=== PATIENT | female | born 1965 ===

== ENCOUNTER 2016-12-10 16:06 | Emergency (ER) | payer MEDICAID, OTHER ==
[2016-12-10 16:06] VITALS: BMI 29.3
[2016-12-10 16:36] VITALS: BP 130/97; PULSE 71; RESP 16; TEMP 98.4; O2SAT 99
--- NOTE | 2016-12-10 16:42 | ED PDOC ---
Arrival/HPI - General Chief Complaint: Upper Extremity Problem/Injury Time Seen by Provider: 12/10/16 16:29 Historian: Patient - History of Present Illness Narrative History of Present Illness (Text): 12/10/16 16:38 51yr old female presents today with 1 week history of right hand and right shoulder pain. 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 pt states she has been taking advil for pain without relief. denies numbness, weakness, tingling in the extremity. no fever/chills. no cp or sob. no medications taken for pain today. last dose of motrin was last night. Time/Duration: 1 week Symptom Onset: Gradual Symptom Course: Worsening Quality: Aching Severity Level: 8 Past Medical History - Provider Review Nursing Documentation Reviewed: Yes - Travel History Have you recently traveled outside [place] w/in the past 3 mons?: No - Infectious Disease Hx of Infectious Diseases: None - Tetanus Immunization Tetanus Immunization: Unknown - Cardiac Hx Hypertension: Yes - Pulmonary Hx Respiratory Disorders: No - Neurological Hx Neurological Disorder: Yes Hx Dizziness: Yes - HEENT Hx HEENT Disorder: No - Renal Hx Renal Disorder: No - Endocrine/Metabolic Hx Endocrine Disorders: No - Hematological/Oncological Hx Blood Disorders: No - Integumentary Hx Dermatological Disorder: No - Musculoskeletal/Rheumatological Hx Musculoskeletal Disorders: Yes Hx Falls: Yes - Gastrointestinal Hx Gastrointestinal Disorders: Yes Hx Gastroesophageal Reflux: Yes (gastritis) Other/Comment: ulcer, hemmorroids - Genitourinary/Gynecological Hx Genitourinary Disorders: Yes Hx Incontinence: Yes (overactive bladder) - Psychiatric Hx Psychophysiologic Disorder: No Hx Substance Use: No - Past Surgical History Past Surgical History: No Previous - Surgical History Hx Hysterectomy: Yes - Anesthesia Hx Anesthesia: Yes Hx Anesthesia Reactions: No Hx Malignant Hyperthermia: No - Suicidal Assessment Feels Threatened In Home Enviroment: No Family/Social History - Physician Review Nursing Documentation Reviewed: Yes Family/Social History: Unknown Family HX Smoking Status: Never Smoked Hx Alcohol Use: Yes (Occasional beer) Hx Substance Use: No Hx Substance Use Treatment: No Allergies/Home Meds Allergies/Adverse Reactions: Allergies No Known Allergies Allergy (Verified 12/10/16 16:29) Home Medications: Home Meds Medication Instructions Recorded Confirmed Lisinopril [Zestril] 20 mg PO DAILY 05/05/16 12/10/16 Aspirin [Adult Low Dose Aspirin EC] 81 mg PO DAILY 10/19/16 12/10/16 Famotidine [Pepcid] 20 mg PO DAILY 10/19/16 12/10/16 Meclizine HCl 12.5 mg PO TID 10/19/16 12/10/16 amLODIPine [Norvasc] 10 mg PO DAILY 10/19/16 12/10/16 hydroCHLOROthiazide [Hydrodiuril] 25 mg PO DAILY 10/19/16 12/10/16 Review of Systems - Review of Systems Constitutional: absent: Fatigue, Fevers Respiratory: absent: SOB, Cough Cardiovascular: absent: Chest Pain, Palpitations Gastrointestinal: absent: Abdominal Pain, Nausea, Vomiting Musculoskeletal: Arthralgias. absent: Back Pain, Neck Pain Skin: absent: Rash, Pruritis Neurological: absent: Headache, Dizziness Physical Exam Vital Signs Temp Pulse Resp BP Pulse Ox 12/10/16 16:10 98.4 F 71 16 130/97 H 99 Temperature: Afebrile Blood Pressure: Normal Pulse: Regular Respiratory Rate: Normal Appearance: Positive for: Well-Appearing, Non-Toxic, Comfortable Pain Distress: None Mental Status: Positive for: Alert and Oriented X 3 - Systems Exam Head: Present: Atraumatic Mouth: Present: Moist Mucous Membranes Respiratory/Chest: Present: Clear to Auscultation, Good Air Exchange. No: Respiratory Distress, Accessory Muscle Use Cardiovascular: Present: Regular Rate and Rhythm, Normal S1, S2. No: Murmurs Back: Present: Normal Inspection Upper Extremity: Present: Normal ROM, NORMAL PULSES, Tenderness (right hand; + ttp over palmar aspect of hand over approx 3rd metacarpal; no edema, no erythema ; no ecchymosis; no wrist tenderness, full rom of wrist. sensation and distal pulses intact. cap refill <2. right shoulder; + ttp over anterior aspect of shoulder; no edema, no erythema; full rom of shoulder with pain; + ttp over right side of trapezius. ), Neurovascularly Intact, Capillary Refill < 2s. No: Swelling, Erythema, Deformity Neurological: Present: GCS=15, Speech Normal Skin: Present: Warm, Dry, Normal Color. No: Rashes Psychiatric: Present: Alert, Oriented x 3 Medical Decision Making ED Course and Treatment: 12/10/16 17:16 Patient nontoxic well-appearing in no distress with stable vital signs X-rays of the right shoulder; no fx xrays of the right hand pain; no fx toradol flexeril Reassessment: Patient feeling better after medications i advised the patient that although the xrays show no fracture; there is still a possibility for ligamentous or tendon injury the patient must see the orthopedist for further evaluation. I discussed all results with patient advised to followup with the orthopedist for the next 2 days. Return if symptoms worsen persist or new symptoms develop David wrap applied Impression: hand pain, shoulder pain Motrin every 6 hours as needed for pain Tramadol 1 tablet every 6 hours as needed for moderate to severe pain. may cause drowsiness. Rest, ice, compression, elevation Followup with the orthopedist within the next 2 days Followup with primary care physician within the next 2 days Return if any other concerning symptoms develop 12/10/16 18:12 - RAD Interpretation Radiology Orders: 12/10/16 16:30 HAND RIGHT 3 VIEWS [RAD] Stat SHOULDER RIGHT [RAD] Stat - Medication Orders Current Medication Orders: Discontinued Medications Cyclobenzaprine HCl (Flexeril) 10 mg PO STAT STA Stop: 12/10/16 16:31 Last Admin: 12/10/16 17:05 Dose: 10 mg Ketorolac Tromethamine (Toradol) 60 mg IM STAT STA Stop: 12/10/16 16:31 Last Admin: 12/10/16 17:05 Dose: 60 mg Disposition/Present on Arrival - Present on Arrival Any Indicators Present on Arrival: No History of DVT/PE: No History of Uncontrolled Diabetes: No Urinary Catheter: No History of Decub. Ulcer: No History Surgical Site Infection Following: None - Disposition Have Diagnosis and Disposition been Completed?: Yes Diagnosis: Hand pain, Shoulder pain Disposition: HOME/ ROUTINE Disposition Time: 17:50 Patient Plan: Discharge Patient Problems: Current Active Problems Problem Status Onset Hand pain Acute Shoulder pain Acute Condition: GOOD Discharge Instructions (ExitCare): Arthralgia (ED) Additional Instructions: Motrin every 6 hours as needed for pain Tramadol 1 tablet every 6 hours as needed for moderate to severe pain. may cause drowsiness. Rest, ice, compression, elevation Followup with the orthopedist within the next 2 days Followup with primary care physician within the next 2 days Return if any other concerning symptoms develop Prescriptions: Ibuprofen [Motrin] 600 mg PO Q6H PRN #20 tab PRN Reason: pain/fever reduction traMADol [Ultram] 50 mg PO Q6H PRN #6 tab PRN Reason: moderate to severe pain Referrals: Libra Bryan MD [Primary Care Provider] - Follow up with primary Norma Cobian MD [Staff Provider] - Follow up with primary [facility] [Outside] - Follow up with primary Forms: WORK NOTE
--- NOTE | 2016-12-11 08:40 | RAD ---
PROCEDURE: Right Hand Radiographs. HISTORY: hand pain x 1 week COMPARISON: None. FINDINGS: BONES: Normal. No fracture. JOINTS: Normal. No osteoarthritic changes. SOFT TISSUES: Normal. OTHER FINDINGS: None. IMPRESSION: Normal right hand radiographs.
--- NOTE | 2016-12-11 08:41 | RAD ---
PROCEDURE: Radiographs of the Right Shoulder HISTORY: shoulder pain COMPARISON: No prior. FINDINGS: BONES: Normal. No fracture. JOINTS: Normal. Glenohumeral and acromioclavicular joints preserved. No osteoarthritis. SOFT TISSUES: Normal. OTHER FINDINGS: None. IMPRESSION: Normal radiographs of the right shoulder.
== END 2016-12-10 18:03 | disposition home or self-care (01) ==
LOC: ED 16:06
DX: M25.511 Pain in right shoulder (principal); M79.641 Pain in right hand; I10 Essential (primary) hypertension
CPT/HCPCS: 73030; 73130; 96372; 99283; J1885

== ENCOUNTER 2016-12-29 12:43 | Emergency (ER) | payer MEDICAID, OTHER ==
[2016-12-29 13:04] VITALS: BMI 29.0
[2016-12-29 13:08] VITALS: RESP 19
[2016-12-29] MEDS ORDERED: Sodium Chloride 0.9% 1,000 ML IV STA (13:31)
[2016-12-29] MEDS ORDERED: Alum-Mag Hydrox-Simethicone Susp (30 mL) PO STA (13:32)
--- NOTE | 2016-12-29 13:35 | ED PDOC ---
Arrival/HPI - General Chief Complaint: GI Problem Time Seen by Provider: 12/29/16 12:52 Historian: Patient - History of Present Illness Narrative History of Present Illness (Text): 12/29/16 13:31 A 51 year old female, whose past medical history includes hypertension, gastritis, stomach ulcer, hiatal hernia and vertigo, presents to the emergency department complaining of abdominal pain since this morning at 06:00. Hisotry obtained through scribe who translated for patient. Patient denies any relieving or exacerbating factors. Contrary to triage patient denies any urinary symptoms. Patient denies any fever, chills, nausea, vomiting, diarrhea, constipation, chest pain, shortness of breath or any other complaints. PMD: Dr. Bryan Time/Duration: Other (This morning at 06:00) Symptom Course: Unchanged Quality: Other Context: Home Past Medical History - Provider Review Nursing Documentation Reviewed: Yes - Infectious Disease Hx of Infectious Diseases: None - Tetanus Immunization Tetanus Immunization: Unknown - Reproductive Menopause: Yes - Cardiac Hx Cardiac Disorders: Yes Hx Hypertension: Yes - Pulmonary Hx Respiratory Disorders: No - Neurological Hx Neurological Disorder: Yes Hx Dizziness: Yes - HEENT Hx HEENT Disorder: Yes (vision probems) - Renal Hx Renal Disorder: No - Endocrine/Metabolic Hx Endocrine Disorders: No - Hematological/Oncological Hx Blood Disorders: No - Integumentary Hx Dermatological Disorder: No - Musculoskeletal/Rheumatological Hx Musculoskeletal Disorders: Yes Hx Falls: Yes - Gastrointestinal Hx Gastrointestinal Disorders: Yes Hx Gastritis: Yes Hx Gastroesophageal Reflux: Yes (gastritis) Other/Comment: ulcer, hemmorroids - Genitourinary/Gynecological Hx Genitourinary Disorders: Yes Hx Incontinence: Yes (overactive bladder) - Psychiatric Hx Psychophysiologic Disorder: No Hx Substance Use: No - Past Surgical History Past Surgical History: No Previous - Surgical History Hx Hysterectomy: Yes - Anesthesia Hx Anesthesia: Yes Hx Anesthesia Reactions: No Hx Malignant Hyperthermia: No - Suicidal Assessment Feels Threatened In Home Enviroment: No Family/Social History - Physician Review Nursing Documentation Reviewed: Yes Family/Social History: No Known Family HX Smoking Status: Never Smoked Hx Alcohol Use: Yes (Occasional beer) Hx Substance Use: No Hx Substance Use Treatment: No Allergies/Home Meds Allergies/Adverse Reactions: Allergies No Known Allergies Allergy (Verified 12/29/16 13:04) Home Medications: Home Meds Medication Instructions Recorded Confirmed Lisinopril [Zestril] 20 mg PO DAILY 05/05/16 12/29/16 Aspirin [Adult Low Dose Aspirin EC] 81 mg PO DAILY 10/19/16 12/29/16 Famotidine [Pepcid] 20 mg PO DAILY 10/19/16 12/29/16 Meclizine HCl 12.5 mg PO TID 10/19/16 12/29/16 amLODIPine [Norvasc] 10 mg PO DAILY 10/19/16 12/29/16 hydroCHLOROthiazide [Hydrodiuril] 25 mg PO DAILY 10/19/16 12/29/16 Review of Systems - Physician Review All systems were reviewed & negative as marked: Yes - Review of Systems Constitutional: absent: Fevers, Night Sweats Respiratory: absent: SOB Cardiovascular: absent: Chest Pain Gastrointestinal: Abdominal Pain. absent: Constipation, Diarrhea, Nausea, Vomiting Genitourinary Female: absent: Dysuria, Frequency, Hematuria, Urine Output Changes Physical Exam - Physical Exam Narrative Physical Exam (Text): Constitutional: No acute distress. Head: Normocephalic. Atraumatic. Eyes: PERRL. ENT: Moist mucous membranes. Neck: Supple. Cardiovascular: Regular rate. Chest: No tenderness. Respiratory: Clear to auscultation bilaterally. GI: Soft. Nondistended. Epigastric tenderness to palpation. No rebound. Back: No CVA tenderness. Musculoskeletal: No tenderness or swelling of extremities. Skin: No rash. Neurologic: Alert, no focal deficit. Vital Signs Reviewed: Yes Vital Signs Temp Pulse Resp BP Pulse Ox 12/29/16 15:04 98.7 F 75 19 127/82 100 12/29/16 13:07 98.0 F 77 19 123/80 98 Temperature: Afebrile Blood Pressure: Normal Pulse: Regular Respiratory Rate: Normal Appearance: Positive for: Well-Appearing, Non-Toxic, Comfortable Pain Distress: None Mental Status: Positive for: Alert and Oriented X 3 Medical Decision Making ED Course and Treatment: 12/29/16 13:31 Impression: A 51 year old female with abdominal pain that she states is typical of her gastritis. Patient denies any nausea, vomiting, diarrhea or urinary symptoms. Epigastric tenderness on exam. Plan: -- Labs -- Urine culture and Urinalysis -- Maalox, Pepcid, Zofran, Protonix and IV fluids -- Reassess and disposition Progress Notes: 12/29/16 15:08 Patient states she feels completely better. Abdomen nontender. Will discharge home, f/u PMD, return to ER for worsening pain, fever, vomiting, dyspnea. - Lab Interpretations Lab Results: 12/29/16 14:05 12/29/16 14:05 Lab Results 12/29/16 14:05: Sodium 138, Potassium 3.6, Chloride 98, Carbon Dioxide 31, Anion Gap 13, BUN 18, Creatinine 0.8, Est GFR ( Amer) > 60, Est GFR (Non- Af Amer) > 60, Random Glucose 101, Calcium 9.0, Total Bilirubin 0.5, AST 30, ALT 40, Alkaline Phosphatase 71, Total Protein 7.2, Albumin 4.1, Globulin 3.2, Albumin/Globulin Ratio 1.3, Lipase 246 12/29/16 14:05: WBC 11.3 H D, RBC 4.24, Hgb 12.3, Hct 37.3, MCV 88.0, MCH 29.0, MCHC 33.0, RDW 13.3, Plt Count 285, MPV 9.0, Gran % 71.2 H, Lymph % (Auto) 22.3 , Dixon % (Auto) 4.9, Eos % (Auto) 1.4 L, Baso % (Auto) 0.2, Gran # 8.05 H, Lymph # 2.5, Dixon # 0.6, Eos # 0.2, Baso # 0.02 12/29/16 13:36: Urine Color Yellow, Urine Appearance Clear, Urine pH 5.5, Ur Specific [place] 1.025, Urine Protein Negative, Urine Glucose (UA) Negative, Urine Ketones Negative, Urine Blood Negative, Urine Nitrate Negative, Urine Bilirubin Negative, Urine Urobilinogen 0.2, Ur Leukocyte Esterase Negative, Urine HCG, Qual Negative I have reviewed the lab results: Yes - Medication Orders Current Medication Orders: Discontinued Medications Al Hydrox/Mg Hydrox/Simethicone (Maalox Plus 30 Ml) 30 ml PO STAT STA Stop: 12/29/16 13:33 Last Admin: 12/29/16 14:24 Dose: 30 ml Famotidine (Pepcid) 20 mg IVP STAT STA Stop: 12/29/16 13:33 Last Admin: 12/29/16 14:23 Dose: 20 mg Sodium Chloride (Sodium Chloride 0.9%) 1,000 mls @ 999 mls/hr IV .Q1H1M STA Stop: 12/29/16 14:31 Last Admin: 12/29/16 13:59 Dose: 999 mls/hr Ondansetron HCl (Zofran Inj) 8 mg IVP STAT STA Stop: 12/29/16 13:32 Last Admin: 12/29/16 14:16 Dose: 8 mg Pantoprazole Sodium (Protonix Inj) 40 mg IVP STAT STA Stop: 12/29/16 13:33 Last Admin: 12/29/16 14:24 Dose: 40 mg - Scribe Statement The provider has reviewed the documentation as recorded by the Riki Grajeda Provider Scribe Attestation: All medical record entries made by the Scribe were at my direction and personally dictated by me. I have reviewed the chart and agree that the record accurately reflects my personal performance of the history, physical exam, medical decision making, and the department course for this patient. I have also personally directed, reviewed, and agree with the discharge instructions and disposition. Disposition/Present on Arrival - Present on Arrival Any Indicators Present on Arrival: No History of DVT/PE: No History of Uncontrolled Diabetes: No Urinary Catheter: No History of Decub. Ulcer: No History Surgical Site Infection Following: None - Disposition Have Diagnosis and Disposition been Completed?: Yes Diagnosis: Abdominal pain Disposition: HOME/ ROUTINE Disposition Time: 14:46 Patient Plan: Discharge Condition: STABLE Discharge Instructions (ExitCare): Abdominal Pain (ED) Prescriptions: Famotidine/Ca Carb/Mag Hydrox [Pepcid Complete Tablet Chew] 1 each PO BID #28 tab.chew Referrals: Libra Bryan MD [Primary Care Provider] - Follow up with primary
[2016-12-29 13:44] LABS: PH,URINE 5.5 (4.7-8.0); URINE BILIRUBIN NEGATIVE (NEGATIVE); URINE BLOOD NEGATIVE (NEGATIVE); URINE GLUCOSE (UA) NEGATIVE (NEGATIVE); URINE KETONE NEGATIVE (NEGATIVE); URINE LEUKOCYTE ESTERASE NEGATIVE Leu/uL (NEGATIVE); URINE PROTEIN NEGATIVE mg/dL (<30 mg/dL); URINE UROBILINOGEN 0.2 E.U./dL (<1 E.U./dL)
[2016-12-29 13:45] LABS: URINE APPEARANCE CLEAR (CLEAR); URINE COLOR YELLOW (YELLOW)
[2016-12-29 14:07] LABS: ADD MANUAL DIFF? NO
[2016-12-29 14:20] LABS: BASO # 0.02 K/mm3 (0.0-2.0); BASO % 0.2 % (0.0-3.0); EOS # 0.2 (0.0-0.7); EOS % 1.4 % (1.5-5.0); GRAN # 8.05 (1.4-6.5); GRAN % 71.2 % (50.0-68.0); HEMATOCRIT 37.3 % (36.0-48.0); LYMPH # 2.5 (1.2-3.4); LYMPH % 22.3 % (22.0-35.0); MONO # 0.6 (0.1-0.6); MONO % 4.9 % (1.0-6.0); PLATELET COUNT 285 10^3/uL (120.0-450.0); RED CELL DISTRIBUTION WIDTH 13.3 % (11.5-14.5); WHITE BLOOD COUNT 11.3 10^3/ul (4.5-11.0)
[2016-12-29 14:26] LABS: ALB/GLOB RATIO 1.3 (1.1-1.8); ALKALINE PHOSPHATASE 71 U/L (38-133); ALT/SGPT 40 U/L (7-56); AST/SGOT 30 U/L (15-39); BILIRUBIN,TOTAL 0.5 mg/dL (0.2-1.3); BLOOD UREA NITROGEN 18 mg/dL (7-21); CARBON DIOXIDE 31 mmol/L (21-33); CHLORIDE 98 mmol/L (95-110); GFR AFRICAN-AMERICAN > 60; GLUCOSE,RANDOM 101 mg/dL (70-110); LIPASE 246 U/L (23-300); POTASSIUM 3.6 mmol/L (3.6-5.0); SODIUM 138 mmol/L (132-148); TOTAL PROTEIN 7.2 g/dL (5.8-8.3)
[2016-12-29 15:05] VITALS: BP 127/82; PULSE 75; TEMP 98.7; O2SAT 100
== END 2016-12-29 15:08 | disposition home or self-care (01) ==
LOC: ED 12:43
DX: R10.9 Unspecified abdominal pain (principal); I10 Essential (primary) hypertension; K21.9 Gastro-esophageal reflux disease without esophagitis
CPT/HCPCS: 80053; 81003; 83690; 84703; 85025; 87086; 87181; 96374; 96375; 99284; C9113; J2405; J7040

== ENCOUNTER 2017-03-17 16:12 | Emergency (ER) | payer MEDICAID ==
[2017-03-17 16:15] VITALS: BMI 29.0
[2017-03-17 16:21] VITALS: RESP 16; TEMP 99
[2017-03-17] MEDS ORDERED: Sodium Chloride 0.9% 1,000 ML IV STA (17:13)
[2017-03-17 17:30] LABS: BASO # 0.05 K/mm3 (0.0-2.0); BASO % 0.5 % (0.0-3.0); EOS # 0.1 (0.0-0.7); EOS % 1.4 % (1.5-5.0); GRAN # 6.09 (1.4-6.5); HEMOGLOBIN 12.9 gm/dL (12.0-16.0); LYMPH # 3.4 (1.2-3.4); LYMPH % 32.9 % (22.0-35.0); MEAN CELL VOLUME 87.9 fL (80.0-105.0); MEAN CORPUSCULAR HEMOGLOBIN 28.8 pg (25.0-35.0); MEAN CORPUSCULAR HGB CONC 32.7 g/dl (31.0-37.0); MEAN PLATELET VOLUME 9.2 fl (7.0-11.0); MONO # 0.6 (0.1-0.6); MONO % 6.2 % (1.0-6.0); PLATELET COUNT 285 10^3/uL (120.0-450.0); RBC 4.48 10^6/uL (3.5-6.1); RED CELL DISTRIBUTION WIDTH 13.4 % (11.5-14.5); WHITE BLOOD COUNT 10.3 10^3/ul (4.5-11.0)
[2017-03-17 17:38] LABS: URINE BILIRUBIN NEGATIVE (NEGATIVE); URINE BLOOD NEGATIVE (NEGATIVE); URINE GLUCOSE (UA) NEGATIVE (NEGATIVE); URINE LEUKOCYTE ESTERASE NEGATIVE Leu/uL (NEGATIVE); URINE NITRATE NEGATIVE (NEGATIVE); URINE PROTEIN NEGATIVE mg/dL (<30 mg/dL); URINE UROBILINOGEN 0.2 E.U./dL (<1 E.U./dL)
[2017-03-17 17:39] LABS: URINE APPEARANCE CLEAR (CLEAR); URINE COLOR YELLOW (YELLOW)
--- NOTE | 2017-03-17 17:39 | ED PDOC ---
Arrival/HPI - General Chief Complaint: Dizziness/Lightheaded Time Seen by Provider: 03/17/17 17:12 Historian: Patient - History of Present Illness Narrative History of Present Illness (Text): 03/17/17 17:36 Patient with past medical history of hypertension, reports 2 day h/o intermittent dizziness with vertigo as stated with nausea. Patient was well prior to the start of symptoms. Reports (+) worsening of symptoms with movement of head. She also reports having similar symptoms in the past, was taking meclizine, however states that she has not had a Rx for meclizine "for a while. " She does add that her current symptoms are more mild than her previous episodes in the past, when she would almost have syncopal episodes. Otherwise: ( -) lightheadedness, (-) trauma, (-) headache, (-) tinnitus, (-) hearing loss, (- ) chest pain, (-) dyspnea, (-) fever, (-) vomiting, (-) URI, (-) recent illness , (-) diarrhea, (-) syncope, (-) GI bleeding. PMD Irvin Past Medical History - Provider Review Nursing Documentation Reviewed: Yes - Infectious Disease Hx of Infectious Diseases: None - Tetanus Immunization Tetanus Immunization: Unknown - Cardiac Hx Cardiac Disorders: Yes Hx Hypertension: Yes - Pulmonary Hx Respiratory Disorders: No - Neurological Hx Neurological Disorder: Yes Hx Dizziness: Yes - HEENT Hx HEENT Disorder: Yes (vision probems) - Renal Hx Renal Disorder: No - Endocrine/Metabolic Hx Endocrine Disorders: No - Hematological/Oncological Hx Blood Disorders: No - Integumentary Hx Dermatological Disorder: No - Musculoskeletal/Rheumatological Hx Musculoskeletal Disorders: Yes Hx Falls: Yes - Gastrointestinal Hx Gastrointestinal Disorders: Yes Hx Gastritis: Yes Hx Gastroesophageal Reflux: Yes (gastritis) Hx Hemorrhoids: Yes Other/Comment: ulcer, hemmorroids - Genitourinary/Gynecological Hx Genitourinary Disorders: Yes Hx Incontinence: Yes (overactive bladder) - Psychiatric Hx Psychophysiologic Disorder: No Hx Substance Use: No - Past Surgical History Past Surgical History: No Previous - Surgical History Hx Hysterectomy: Yes - Anesthesia Hx Anesthesia: Yes Hx Anesthesia Reactions: No Hx Malignant Hyperthermia: No - Suicidal Assessment Feels Threatened In Home Enviroment: No Family/Social History - Physician Review Nursing Documentation Reviewed: Yes Family/Social History: No Known Family HX Smoking Status: Never Smoked Hx Alcohol Use: Yes (Occasional beer) Hx Substance Use: No Hx Substance Use Treatment: No Allergies/Home Meds Allergies/Adverse Reactions: Allergies No Known Allergies Allergy (Verified 12/29/16 13:04) Home Medications: Home Meds Medication Instructions Recorded Confirmed Lisinopril [Zestril] 20 mg PO DAILY 05/05/16 03/17/17 Aspirin [Adult Low Dose Aspirin EC] 81 mg PO DAILY 10/19/16 03/17/17 Famotidine [Pepcid] 20 mg PO DAILY 10/19/16 03/17/17 amLODIPine [Norvasc] 10 mg PO DAILY 10/19/16 03/17/17 hydroCHLOROthiazide [Hydrodiuril] 25 mg PO DAILY 10/19/16 03/17/17 Review of Systems - Review of Systems Constitutional: Normal. absent: Fatigue, Weight Change, Fevers ENT: Normal. absent: Hearing Changes, Tinnitus, Sore Throat, Epistaxis, Sinus Congestion Respiratory: Normal. absent: SOB, Cough, Sputum Cardiovascular: Normal. absent: Chest Pain, Palpitations, Edema Gastrointestinal: Normal, Nausea. absent: Abdominal Pain, Stool Changes, Appetite Changes Musculoskeletal: Normal. absent: Arthralgias, Back Pain, Neck Pain Skin: Normal. absent: Rash, Pruritis, Skin Lesions Neurological: Normal, Dizziness. absent: Headache, Focal Weakness Physical Exam - Physical Exam Narrative Physical Exam (Text): 03/17/17 17:39 GENERAL APPEARANCE: Patient is awake, alert, oriented x 3, in mild distress. SKIN: Warm, dry; (-) cyanosis. HEAD: (-) scalp swelling or tenderness. EYES: (-) conjunctival pallor. ENMT: TMs normal. Mucous membranes moist. NECK: (-) tenderness, (-) stiffness, (-) lymphadenopathy. Carotids: (-) bruit. CHEST AND RESPIRATORY: (-) rales, (-) rhonchi, (-) wheezes; breath sounds equal bilaterally. HEART AND CARDIOVASCULAR: (-) irregularity; (-) murmur, (-) gallop. ABDOMEN AND GI: Soft; (-) distention, (-) tenderness, (-) rebound, (-) guarding , (-) palpable masses, (-) flank tenderness. EXTREMITIES: (-) deformity; (-) edema. Distal pulses: present. NEURO AND PSYCH: Mental status as above. medical sales specialist: (+) faint horizontal nystagmus; Pupils equal & reactive, EOMI, (-) facial asymmetry; (-) dysarthria; tongue and uvula midline. Strength and DTRs symmetric. Gait: unable to test, as the pt is too dizzy. Vital Signs Temp Pulse Resp BP Pulse Ox 03/17/17 18:15 59 L 16 126/78 98 03/17/17 17:25 60 16 115/77 96 03/17/17 16:50 65 16 119/76 97 03/17/17 16:20 99 F 72 16 136/81 96 Medical Decision Making ED Course and Treatment: 03/17/17 17:40 51 yo F with past medical history of hypertension, reports 2 day h/o intermittent dizziness with vertigo associated with nausea. Plan: -- Labs -- IV fluids -- Urinalysis -- EKG -- CXR -- Meclizine PO / Zofran IV -- Reassess and disposition 03/17/17 17:43 EKG: NSR at 64 bpm, (-) acute ST changes, as read by KARON. CXR : NAD, as read by KARON 03/17/17 18:30 Labs reviewed and are within normal limits. Diagnostic results discussed the patient in great detail. Patient informed of likely diagnosis of vertigo. On reevaluation, patient states that she feels much improved, denies any dizziness , headache, chest pain, shortness of breath or nausea at this time. VS: P 59 BP 126/78 R 16 O298% RA. On exam, patient is laying comfortably in bed in no acute distress. She remains awake, alert, oriented 3, lungs clear to auscultation, cardiac regular rate and rhythm, repeat neuro exam shows no acute focal findings. Patient able to stand up on her own without any assistance is ambulating with a normal gait in the emergency room. Patient advised to follow up with primary care physician in 1-2 days without fail. Advised to take medication as prescribed. Return to the emergency room at any time for any new or worsening symptoms. Patient states she fully agrees with and understands discharge instructions. States that she agrees with the plan and disposition. Verbalized and repeated discharge instructions and plan. I have given the patient opportunity to ask any additional questions. - Lab Interpretations Lab Results: 03/17/17 16:45 03/17/17 16:45 Lab Results 03/17/17 16:45: Urine Color Yellow, Urine Appearance Clear, Urine pH 6.0, Ur Specific [place] >= 1.030, Urine Protein Negative, Urine Glucose (UA) Negative, Urine Ketones Negative, Urine Blood Negative, Urine Nitrate Negative, Urine Bilirubin Negative, Urine Urobilinogen 0.2, Ur Leukocyte Esterase Negative 03/17/17 16:45: Sodium 140, Potassium 4.1, Chloride 99, Carbon Dioxide 31, Anion Gap 14, BUN 15, Creatinine 1.0, Est GFR ( Amer) > 60, Est GFR (Non- Af Amer) 58, Random Glucose 91, Calcium 9.8, Total Bilirubin 0.6, AST 32, ALT 35 , Alkaline Phosphatase 68, Lactate Dehydrogenase 533, Total Creatine Kinase 147 , Troponin I < 0.01, Total Protein 7.5, Albumin 4.4, Globulin 3.1, Albumin/ Globulin Ratio 1.4 03/17/17 16:45: WBC 10.3, RBC 4.48, Hgb 12.9, Hct 39.4, MCV 87.9, MCH 28.8, MCHC 32.7, RDW 13.4, Plt Count 285, MPV 9.2, Gran % 59.0, Lymph % (Auto) 32.9, [place] % (Auto) 6.2 H, Eos % (Auto) 1.4 L, Baso % (Auto) 0.5, Gran # 6.09, Lymph # 3.4, [place] # 0.6, Eos # 0.1, Baso # 0.05 - RAD Interpretation Radiology Orders: 03/17/17 17:13 CHEST PORTABLE [RAD] Stat - Medication Orders Current Medication Orders: Discontinued Medications Sodium Chloride (Sodium Chloride 0.9%) 1,000 mls @ 1,000 mls/hr IV .Q1H STA Stop: 03/17/17 18:12 Last Admin: 03/17/17 17:16 Dose: 1,000 mls/hr Meclizine HCl (Antivert) 25 mg PO STAT STA Stop: 03/17/17 17:15 Last Admin: 03/17/17 17:20 Dose: 25 mg Ondansetron HCl (Zofran Inj) 4 mg IVP STAT STA Stop: 03/17/17 17:14 Last Admin: 03/17/17 17:20 Dose: 4 mg - PA / ARCHITECTURAL EXAMINER / Resident Statement /DO has reviewed & agrees with the documentation as recorded. Disposition/Present on Arrival - Present on Arrival Any Indicators Present on Arrival: No History of DVT/PE: No History of Uncontrolled Diabetes: No Urinary Catheter: No History of Decub. Ulcer: No History Surgical Site Infection Following: None - Disposition Have Diagnosis and Disposition been Completed?: Yes Diagnosis: Vertigo Disposition: HOME/ ROUTINE Disposition Time: 18:30 Patient Plan: Discharge Patient Problems: Current Active Problems Problem Status Onset Vertigo Acute Condition: STABLE Discharge Instructions (ExitCare): Vertigo (ED) Print Language: HUNGARIAN Additional Instructions: Thank you for letting us take care of you today. You were treated for vertigo. The emergency medical care you received today was directed at your acute symptoms. If you were prescribed any medication, please fill it and take as directed. It may take several days for your symptoms to resolve. Return to the Emergency Department if your symptoms worsen, do not improve, or if you have any other problems. Please contact your doctor in 2 days for re-evaluation and follow up. Bring any paperwork you were given at discharge with you along with any medications you are taking to your follow up visit. Our treatment cannot replace ongoing medical care by a primary care provider (PCP) outside of the emergency department. Thank you for allowing the [facility] team to be part of your care today. Prescriptions: Meclizine [Meclizine*] 25 mg PO Q6 PRN #20 tab PRN Reason: Dizziness Ondansetron ODT [Zofran ODT] 4 mg PO DAILY PRN #20 odt PRN Reason: Nausea/Vomiting Referrals: Libra Bryan MD [Primary Care Provider] - Follow up with primary Forms: Ghostery (Egyptian), WORK NOTE
[2017-03-17 17:40] LABS: ALB/GLOB RATIO 1.4 (1.1-1.8); ALBUMIN 4.4 g/dL (3.0-4.8); AST/SGOT 32 U/L (15-39); BLOOD UREA NITROGEN 15 mg/dL (7-21); CALCIUM 9.8 mg/dL (8.4-10.5); GFR AFRICAN-AMERICAN > 60; GFR NON-AFRICAN AMERICAN 58
[2017-03-17 18:05] LABS: ALT/SGPT 35 U/L (7-56)
[2017-03-17 18:17] VITALS: BP 126/78; PULSE 59; O2SAT 98
[2017-03-17 18:20] LABS: TROPONIN I < 0.01 ng/mL
--- NOTE | 2017-03-18 09:51 | RAD ---
HISTORY: dizziness COMPARISON: 08/02/2016 FINDINGS: LUNGS: No active pulmonary disease. PLEURA: No significant pleural effusion identified, no pneumothorax apparent. CARDIOVASCULAR: Normal. OSSEOUS STRUCTURES: No significant abnormalities. VISUALIZED UPPER ABDOMEN: Normal. OTHER FINDINGS: None. IMPRESSION: No active disease.
--- NOTE | 2017-03-19 09:35 | CARD ---
APPROVED REPORT EKG Measurement Heart [id number] WI [id number] <Conclusion> Normal sinus rhythm NSSTW changes
== END 2017-03-17 18:57 | disposition home or self-care (01) ==
LOC: ED 16:12
DX: R42 Dizziness and giddiness (principal)
CPT/HCPCS: 71010; 80053; 81003; 82550; 83615; 84484; 85025; 87086; 96361; 96374; 99285; J2405; J7040

== ENCOUNTER 2017-05-23 15:34 | Emergency (ER) | payer MEDICAID ==
[2017-05-23 15:34] VITALS: BMI 29.0
[2017-05-23 15:53] VITALS: TEMP 98.6
--- NOTE | 2017-05-23 16:28 | ED PDOC ---
Arrival/HPI - General Chief Complaint: Eye Problem Time Seen by Provider: 05/23/17 16:24 Historian: Patient - History of Present Illness Narrative History of Present Illness (Text): 05/23/17 16:25 51-year-old female whose past medical history includes hypertension, gastritis, stomach ulcer, hiatal hernia and vertigo, presents to the emergency department complaining of eye appears red 1 day. Patient did not realize about the redness of her eye until while her friends pointed out. Patient stated her left eye feels a little sore she was concerned that this redness was caused by hypertension. Patient thinks she needs eyeglasses however she has never seen an eye doctor before. Patient denies eye trauma, diplopia, headaches, epistaxis, hematuria, rectal bleeding, chest pain or shortness of breath, or urinary symptoms. Patient admits taking a baby aspirin daily Time/Duration: Other (See HPI) Context: Home Past Medical History - Provider Review Nursing Documentation Reviewed: Yes - Infectious Disease Hx of Infectious Diseases: None - Tetanus Immunization Tetanus Immunization: Unknown - Cardiac Hx Cardiac Disorders: Yes Hx Hypertension: Yes - Pulmonary Hx Respiratory Disorders: No - Neurological Hx Neurological Disorder: Yes Hx Dizziness: Yes - HEENT Hx HEENT Disorder: Yes (vision probems) - Renal Hx Renal Disorder: No - Endocrine/Metabolic Hx Endocrine Disorders: No - Hematological/Oncological Hx Blood Disorders: No - Integumentary Hx Dermatological Disorder: No - Musculoskeletal/Rheumatological Hx Musculoskeletal Disorders: Yes Hx Falls: Yes - Gastrointestinal Hx Gastrointestinal Disorders: Yes Hx Gastritis: Yes Hx Gastroesophageal Reflux: Yes (gastritis) Hx Hemorrhoids: Yes Other/Comment: ulcer, hemmorroids - Genitourinary/Gynecological Hx Genitourinary Disorders: Yes Hx Incontinence: Yes (overactive bladder) - Psychiatric Hx Psychophysiologic Disorder: No Hx Substance Use: No - Past Surgical History Past Surgical History: No Previous - Surgical History Hx Hysterectomy: Yes - Anesthesia Hx Anesthesia: Yes Hx Anesthesia Reactions: No Hx Malignant Hyperthermia: No - Suicidal Assessment Feels Threatened In Home Enviroment: No Family/Social History - Physician Review Nursing Documentation Reviewed: Yes Family/Social History: Other (Noncontributory) Smoking Status: Never Smoked Hx Alcohol Use: Yes (Occasional) Hx Substance Use: No Hx Substance Use Treatment: No Allergies/Home Meds Allergies/Adverse Reactions: Allergies No Known Allergies Allergy (Verified 05/23/17 15:50) Home Medications: Home Meds Medication Instructions Recorded Confirmed Unobtainable 05/23/17 05/23/17 Review of Systems - Review of Systems Constitutional: Normal. absent: Fatigue, Weight Change, Fevers Eyes: Other (Left eye redness). absent: Photophobia, Eye Pain ENT: Normal Respiratory: Normal. absent: SOB, Cough Cardiovascular: Normal. absent: Chest Pain, Palpitations Gastrointestinal: Normal. absent: Abdominal Pain, Nausea, Vomiting Genitourinary Female: Normal. absent: Dysuria, Frequency, Hematuria Musculoskeletal: Normal. absent: Back Pain, Neck Pain Skin: Normal Neurological: Normal Endocrine: Normal Hemo/Lymphatic: Normal Psychiatric: Normal Physical Exam Vital Signs Temp Pulse Resp BP Pulse Ox 05/23/17 15:50 98.6 F 80 16 125/85 97 Temperature: Afebrile Blood Pressure: Normal Pulse: Regular Respiratory Rate: Normal Appearance: Positive for: Well-Appearing, Non-Toxic, Comfortable Pain Distress: None Mental Status: Positive for: Alert and Oriented X 3 - Systems Exam Head: Present: Atraumatic, Normocephalic Pupils: Present: PERRL, Other (No hyphema) Extroacular Muscles: Present: EOMI. No: Entrapment Conjunctiva: Present: Other (Left eye subconjunctival hemorrhage, over the medial aspect of the sclera. No Cornea abrasion, dendritic lesions, no foreign bodies) Ears: Present: Normal, NORMAL TM, Normal Canal. No: Erythema, TM Bulging, Fluid , TM Perf Mouth: Present: Moist Mucous Membranes Pharnyx: Present: Normal. No: ERYTHEMA, EXUDATE, TONSILS ENLARGED Nose (External): Present: Atraumatic Nose (Internal): Present: Normal Inspection Neck: Present: Normal Range of Motion. No: Meningeal Signs, MIDLINE TENDERNESS , Paraspinal Tenderness Respiratory/Chest: Present: Clear to Auscultation, Good Air Exchange. No: Respiratory Distress, Accessory Muscle Use Cardiovascular: Present: Regular Rate and Rhythm, Normal S1, S2. No: Murmurs Abdomen: Present: Normal Bowel Sounds. No: Tenderness, Distention, Peritoneal Signs Back: Present: Normal Inspection. No: CVA Tenderness Upper Extremity: Present: Normal Inspection, Normal ROM, NORMAL PULSES, Neurovascularly Intact, Capillary Refill < 2s. No: Cyanosis, Edema Lower Extremity: Present: Normal Inspection, NORMAL PULSES, Normal ROM, Capillary Refill < 2 s. No: Edema Neurological: Present: GCS=15, CN II-XII Intact, Speech Normal, Motor Func Grossly Intact, Normal Sensory Function, Normal Cerebellar Funct, Gait Normal, Memory Normal Skin: Present: Warm, Dry, Normal Color. No: Rashes Psychiatric: Present: Alert, Oriented x 3, Normal Insight, Normal Concentration Medical Decision Making ED Course and Treatment: 05/23/17 16:35 I discuss case with Dr. Mercedes, who agrees with plan for discharge, and to f/u Enrollment Eligibility Representative in 1-2 days, or to return to emergency if symptoms worsen or persist. Re-evaluation Time: 16:36 Reassessment Condition: Re-examined, Improved Disposition/Present on Arrival - Present on Arrival Any Indicators Present on Arrival: No History of DVT/PE: No History of Uncontrolled Diabetes: No Urinary Catheter: No History of Decub. Ulcer: No History Surgical Site Infection Following: None - Disposition Have Diagnosis and Disposition been Completed?: Yes Diagnosis: Subconjunctival hemorrhage of left eye Disposition: HOME/ ROUTINE Disposition Time: 16:36 Condition: GOOD Additional Instructions: Call Eye doctor Alexa para seguimiento medico en 1-2 lester. [place] Tylenol para el dolor. Trate de no tocar llanes gonzález, porque lo puede irritar mas. regrese si el dolor de gonzález empeora Referrals: Libra Bryan MD [Primary Care Provider] - Follow up with primary Prateek Liu MD [Staff Provider] - Follow up with primary Forms: Arvin[employer] (Lithuanian)
[2017-05-23 17:07] VITALS: BP 126/80; PULSE 77; RESP 18; O2SAT 100
== END 2017-05-23 17:27 | disposition home or self-care (01) ==
LOC: ED 15:34
DX: H11.32 Conjunctival hemorrhage, left eye (principal); I10 Essential (primary) hypertension

== ENCOUNTER 2017-07-21 19:52 | Emergency (ER) | payer MEDICAID ==
[2017-07-21 20:09] VITALS: TEMP 98.7; BMI 27.2
[2017-07-21 20:38] LABS: BASO # 0.03 K/mm3 (0.0-2.0); BASO % 0.3 % (0.0-3.0); EOS # 0.2 (0.0-0.7); EOS % 1.8 % (1.5-5.0); GRAN # 5.19 (1.4-6.5); GRAN % 56.1 % (50.0-68.0); LYMPH # 3.4 (1.2-3.4); MEAN CELL VOLUME 89.3 fl (80.0-105.0); MEAN CORPUSCULAR HEMOGLOBIN 28.6 pg (25.0-35.0); MEAN PLATELET VOLUME 9.3 fl (7.0-11.0); MONO # 0.4 (0.1-0.6); MONO % 4.8 % (1.0-6.0); RED CELL DISTRIBUTION WIDTH 13.5 % (11.5-14.5); WHITE BLOOD COUNT 9.3 10^3/ul (4.5-11.0)
[2017-07-21 20:49] LABS: ALB/GLOB RATIO 1.4 (1.1-1.8); ALKALINE PHOSPHATASE 74 U/L (38-126); ALT/SGPT 37 U/L (7-56); AST/SGOT 34 U/L (14-36); BILIRUBIN,TOTAL 0.3 mg/dL (0.2-1.3); BLOOD UREA NITROGEN 17 mg/dL (7-21); CALCIUM 10.7 mg/dL (8.4-10.5); CARBON DIOXIDE 31 mmol/L (21-33); CHLORIDE 100 mmol/L (98-107); GFR AFRICAN-AMERICAN > 60; GLUCOSE,RANDOM 139 mg/dL (70-110); SODIUM 140 mmol/L (132-148); TOTAL PROTEIN 7.7 g/dL (5.8-8.3)
--- NOTE | 2017-07-21 21:15 | CT ---
EXAM: CT Head Without Intravenous Contrast CLINICAL HISTORY: 51 years old, female; Signs and symptoms; Dizziness; Additional info: Dizzy TECHNIQUE: Axial computed tomography images of the head/brain without intravenous contrast. All CT scans at this facility use one or more dose reduction techniques, viz.: automated exposure control; ma/kV adjustment per patient size (including targeted exams where dose is matched to indication; i.e. head); or iterative reconstruction technique. COMPARISON: CT - HEAD W/O CONTRAST 2016-08-02 22:42 FINDINGS: Brain: No intracranial hemorrhage. No mass. Minimal decreased attenuation within periventricular white matter. No definite edema. Ventricles: No hydrocephalus. Bones/joints: No acute fracture. Soft tissues: Unremarkable. Sinuses: No acute sinusitis. Mastoid air cells: No mastoid effusion. Orbits: Unremarkable as visualized. IMPRESSION: 1. Nonspecific white matter changes. Acute infarction may be CT occult within first 24 hours. If a focal deficit persists, consider followup CT or MRI for further evaluation.
[2017-07-21 22:17] VITALS: PULSE 70
--- NOTE | 2017-07-21 22:35 | ED PDOC ---
Arrival/HPI - General Chief Complaint: GI Problem Time Seen by Provider: 07/21/17 19:55 Historian: Patient - History of Present Illness Narrative History of Present Illness (Text): 07/21/17 20:00 Christel Yuen is a 51 year old female, whose past medical history includes hypertension, gastritis, stomach ulcer, hiatal hernia and vertigo, who presents to the emergency department complaining of hypertension and dizziness with associated nausea tonight. Patient denies any vomiting, chest pain, palpitations, headache, or any other complaint at this time. Time/Duration: 4-6 hours Symptom Onset: Gradual Symptom Course: Unchanged Activities at Onset: Light Context: Home Past Medical History - Provider Review Nursing Documentation Reviewed: Yes - Infectious Disease Hx of Infectious Diseases: None - Tetanus Immunization Tetanus Immunization: Unknown - Cardiac Hx Cardiac Disorders: Yes Hx Hypertension: Yes - Pulmonary Hx Respiratory Disorders: No - Neurological Hx Neurological Disorder: Yes Hx Dizziness: Yes - HEENT Hx HEENT Disorder: Yes (vision probems) - Renal Hx Renal Disorder: No - Endocrine/Metabolic Hx Endocrine Disorders: No - Hematological/Oncological Hx Blood Disorders: No - Integumentary Hx Dermatological Disorder: No - Musculoskeletal/Rheumatological Hx Musculoskeletal Disorders: Yes Hx Falls: Yes - Gastrointestinal Hx Gastrointestinal Disorders: Yes Hx Gastritis: Yes Hx Gastroesophageal Reflux: Yes (gastritis) Hx Hemorrhoids: Yes Other/Comment: ulcer, hemmorroids - Genitourinary/Gynecological Hx Genitourinary Disorders: Yes Hx Incontinence: Yes (overactive bladder) - Psychiatric Hx Psychophysiologic Disorder: No Hx Substance Use: No - Past Surgical History Past Surgical History: No Previous - Surgical History Hx Hysterectomy: Yes - Anesthesia Hx Anesthesia: Yes Hx Anesthesia Reactions: No Hx Malignant Hyperthermia: No - Suicidal Assessment Feels Threatened In Home Enviroment: No Family/Social History - Physician Review Nursing Documentation Reviewed: Yes Family/Social History: No Known Family HX Smoking Status: Never Smoked Hx Alcohol Use: Yes (Occasional) Hx Substance Use: No Hx Substance Use Treatment: No Allergies/Home Meds Allergies/Adverse Reactions: Allergies No Known Allergies Allergy (Verified 07/21/17 20:08) Review of Systems - Physician Review All systems were reviewed & negative as marked: Yes - Review of Systems Constitutional: absent: Fevers, Night Sweats Eyes: absent: Vision Changes ENT: absent: Hearing Changes Respiratory: absent: SOB, Cough Cardiovascular: absent: Chest Pain Gastrointestinal: Nausea. absent: Abdominal Pain Genitourinary Female: absent: Dysuria, Frequency Musculoskeletal: absent: Arthralgias Neurological: Dizziness Endocrine: absent: Diaphoresis Hemo/Lymphatic: absent: Adenopathy Psychiatric: absent: Anxiety, Depression Physical Exam Vital Signs Reviewed: Yes Vital Signs Temp Pulse Resp BP Pulse Ox 07/21/17 22:37 70 20 112/68 99 07/21/17 22:17 70 18 116/53 L 98 07/21/17 20:43 72 167/104 H 07/21/17 20:09 98.7 F 63 18 164/104 H 98 07/21/17 20:07 98.7 F 63 18 176/90 H 98 Temperature: Afebrile Blood Pressure: Hypertensive Pulse: Regular Respiratory Rate: Normal Appearance: Positive for: Well-Appearing, Non-Toxic, Comfortable Pain Distress: None Mental Status: Positive for: Alert and Oriented X 3 - Systems Exam Head: Present: Atraumatic, Normocephalic Pupils: Present: PERRL Extroacular Muscles: Present: EOMI Conjunctiva: Present: Normal Mouth: Present: Moist Mucous Membranes Neck: Present: Normal Range of Motion Respiratory/Chest: Present: Clear to Auscultation, Good Air Exchange. No: Respiratory Distress, Accessory Muscle Use Cardiovascular: Present: Regular Rate and Rhythm, Normal S1, S2. No: Murmurs Abdomen: Present: Normal Bowel Sounds. No: Tenderness, Distention, Peritoneal Signs Back: Present: Normal Inspection Upper Extremity: Present: Normal Inspection. No: Cyanosis, Edema Lower Extremity: Present: Normal Inspection. No: Edema Neurological: Present: GCS=15, CN II-XII Intact, Speech Normal Skin: Present: Warm, Dry, Normal Color. No: Rashes Psychiatric: Present: Alert, Oriented x 3, Normal Insight, Normal Concentration Medical Decision Making ED Course and Treatment: 07/21/17 22:36 Impression: 51 year old female complaining of hypertension and dizziness with associated nausea tonight. Differential Diagnosis included but are not limited to: Plan: -- Antivert, Apresoline, and Zofran -- Reassess and disposition Prior Visits: Notes and results from previous visits were reviewed. Patient was last seen in the emergency department on 05/23/17 for eye redness for one day. Patient was discharged home. Progress Notes: Reassessment Condition: Re-examined, Improved - Lab Interpretations Lab Results: 07/21/17 20:30 07/21/17 20:30 Lab Results 07/21/17 20:30: Sodium 140, Potassium 4.0, Chloride 100, Carbon Dioxide 31, Anion Gap 13, BUN 17, Creatinine 1.0, Est GFR ( Amer) > 60, Est GFR (Non- Af Amer) 58, Random Glucose 139 H, Calcium 10.7 H, Total Bilirubin 0.3, AST 34, ALT 37, Alkaline Phosphatase 74, Total Protein 7.7, Albumin 4.5, Globulin 3.2, Albumin/Globulin Ratio 1.4 07/21/17 20:30: WBC 9.3, RBC 4.48, Hgb 12.8, Hct 40.0, MCV 89.3, MCH 28.6, MCHC 32.0, RDW 13.5, Plt Count 273, MPV 9.3, Gran % 56.1, Lymph % (Auto) 37.0 H, Mcdowell % (Auto) 4.8, Eos % (Auto) 1.8, Baso % (Auto) 0.3, Gran # 5.19, Lymph # 3.4 , Mcdowell # 0.4, Eos # 0.2, Baso # 0.03 I have reviewed the lab results: Yes - RAD Interpretation Radiology Orders: 07/21/17 20:22 HEAD W/O CONTRAST [CT] Stat - Medication Orders Current Medication Orders: Discontinued Medications Hydralazine HCl (Apresoline) 10 mg IVP ONCE ONE Stop: 07/21/17 20:24 Last Admin: 07/21/17 20:43 Dose: 10 mg IVP Administration Document 07/21/17 20:43 SS (Rec: 07/21/17 20:43 SS [id number]) Charges for Administration # of IVP Administrations 1 MAR Pulse and Blood Pressure Document 07/21/17 20:43 SS (Rec: 07/21/17 20:43 SS [id number]) Pulse Pulse Rate (60-90) 72 Blood Pressure Blood Pressure (100/60-150/90) 167/104 Meclizine HCl (Antivert) 25 mg PO STAT STA Stop: 07/21/17 21:40 Last Admin: 07/21/17 22:06 Dose: 25 mg Ondansetron HCl (Zofran Inj) 4 mg IVP STAT STA Stop: 07/21/17 20:23 Last Admin: 07/21/17 20:43 Dose: 4 mg IVP Administration Document 07/21/17 20:43 SS (Rec: 07/21/17 20:43 SS [id number]) Charges for Administration # of IVP Administrations 1 - Scribe Statement The provider has reviewed the documentation as recorded by the Scribe Ashley Odonnell Provider Scribe Attestation: All medical record entries made by the Scribe were at my direction and personally dictated by me. I have reviewed the chart and agree that the record accurately reflects my personal performance of the history, physical exam, medical decision making, and the department course for this patient. I have also personally directed, reviewed, and agree with the discharge instructions and disposition Disposition/Present on Arrival - Present on Arrival Any Indicators Present on Arrival: No History of DVT/PE: No History of Uncontrolled Diabetes: No Urinary Catheter: No History of Decub. Ulcer: No History Surgical Site Infection Following: None - Disposition Have Diagnosis and Disposition been Completed?: Yes Diagnosis: Dizziness Disposition: HOME/ ROUTINE Disposition Time: 22:40 Condition: GOOD Discharge Instructions (ExitCare): Dizziness (ED) Print Language: MALAWIAN Prescriptions: Meclizine [Antivert] 25 mg PO TID #21 tab Referrals: Libra Byran MD [Primary Care Provider] - Follow up with primary Forms: [employer] (Indonesian)
[2017-07-21 22:37] VITALS: BP 112/68; RESP 20; O2SAT 99
== END 2017-07-21 22:38 | disposition home or self-care (01) ==
LOC: ED 19:52
DX: R42 Dizziness and giddiness (principal); I10 Essential (primary) hypertension
CPT/HCPCS: 70450; 80053; 85025; 96374; 96375; 99284; J0360; J2405

== ENCOUNTER 2018-11-24 17:20 | Emergency (ER) | payer MEDICAID ==
[2018-11-24 17:27] VITALS: BMI 30.9
[2018-11-24 17:49] VITALS: BP 139/92; PULSE 72; RESP 18; TEMP 97.6; O2SAT 96
[2018-11-24] MEDS ORDERED: Bacitracin 500 Units/gm Oint Foilpak UD TOP ONE (17:54)
[2018-11-24] MEDS ORDERED: TDAP Vaccine 0.5 mL Syr IM ONE (17:54)
[2018-11-24] MEDS ORDERED: Absorbable Gelatin Sponge Size 12-7 ONE (18:03)
--- NOTE | 2018-11-25 03:37 | ED PDOC ---
Arrival/HPI - General Chief Complaint: Abnormal Skin Integrity Time Seen by Provider: 11/24/18 17:21 Historian: Patient - History of Present Illness Narrative History of Present Illness (Text): 53 y/o female with PMH of HTN, migraines, GERD, presents to the ED c/o left hand 5th digit laceration that occurred 1 hour [employer]. Pt was at work when she cut her finger with a knife. She was unable to stop the bleeding at home, prompting ED visit. Pt does not take blood thinners. Unknown last tetanus. Denies numbness, weakness, paresthesias, wounds elsewhere, or any other associated symptoms. Past Medical History - Provider Review Nursing Documentation Reviewed: Yes - Infectious Disease Hx of Infectious Diseases: None - Tetanus Immunization Tetanus Immunization: Unknown - Cardiac Hx Cardiac Disorders: Yes Hx Hypertension: Yes - Pulmonary Hx Respiratory Disorders: No - Neurological Hx Neurological Disorder: Yes Hx Dizziness: Yes - HEENT Hx HEENT Disorder: Yes (vision probems) - Renal Hx Renal Disorder: No - Endocrine/Metabolic Hx Endocrine Disorders: No - Hematological/Oncological Hx Blood Disorders: No - Integumentary Hx Dermatological Disorder: No - Musculoskeletal/Rheumatological Hx Musculoskeletal Disorders: Yes Hx Falls: Yes - Gastrointestinal Hx Gastrointestinal Disorders: Yes Hx Gastritis: Yes Hx Gastroesophageal Reflux: Yes (gastritis) Hx Hemorrhoids: Yes Other/Comment: ulcer, hemmorroids - Genitourinary/Gynecological Hx Genitourinary Disorders: Yes Hx Incontinence: Yes (overactive bladder) - Psychiatric Hx Psychophysiologic Disorder: No Hx Substance Use: No - Past Surgical History Past Surgical History: No Previous - Surgical History Hx Hysterectomy: Yes - Anesthesia Hx Anesthesia: Yes Hx Anesthesia Reactions: No Hx Malignant Hyperthermia: No - Suicidal Assessment Feels Threatened In Home Enviroment: No Family/Social History - Physician Review Nursing Documentation Reviewed: Yes Family/Social History: No Known Family HX Smoking Status: Never Smoked Hx Alcohol Use: Yes (Occasional) Hx Substance Use: No Hx Substance Use Treatment: No Allergies/Home Meds Allergies/Adverse Reactions: Allergies No Known Allergies Allergy (Verified 11/24/18 17:27) Review of Systems - Review of Systems Constitutional: Normal. absent: Fevers Respiratory: Normal. absent: SOB, Cough Cardiovascular: Normal. absent: Chest Pain Gastrointestinal: Normal. absent: Abdominal Pain, Nausea, Vomiting Musculoskeletal: Normal. absent: Back Pain, Neck Pain Skin: Laceration Neurological: Normal. absent: Headache, Dizziness Physical Exam Vital Signs Reviewed: Yes Vital Signs Temp Pulse Resp BP Pulse Ox 11/24/18 17:27 97.6 F 72 18 139/92 H 96 11/24/18 17:20 97.6 F 72 18 139/92 H 96 Temperature: Afebrile Blood Pressure: Normal Pulse: Regular Respiratory Rate: Normal Appearance: Positive for: Well-Appearing, Non-Toxic, Comfortable Pain Distress: None Mental Status: Positive for: Alert and Oriented X 3 - Systems Exam Head: Present: Atraumatic, Normocephalic Pupils: Present: PERRL Extroacular Muscles: Present: EOMI Conjunctiva: Present: Normal Mouth: Present: Moist Mucous Membranes Neck: Present: Normal Range of Motion Respiratory/Chest: Present: Clear to Auscultation Cardiovascular: Present: Regular Rate and Rhythm, Normal S1, S2, Peripheal Pulses Present Upper Extremity: Present: Normal ROM, NORMAL PULSES, Tenderness (over skin avulsion), Neurovascularly Intact, Capillary Refill < 2s, Other (small area of avulsed skin to distal phalanx of left hand 5th digit). No: Temperature Abnormalties, Deformity Lower Extremity: Present: Normal ROM Neurological: Present: GCS=15, CN II-XII Intact, Speech Normal, Motor Func Grossly Intact, Normal Sensory Function, Gait Normal Skin: Present: Warm, Dry, Normal Color, Other (1cmx 0.5cm area of avulsed skin to distal phalanx of left hand 5th digit; small amount of active bleeding). No: Rashes Psychiatric: Present: Alert, Oriented x 3, Normal Insight, Normal Concentration, Normal Affect, Normal Mood Medical Decision Making ED Course and Treatment: Initial Plan: * Wound irrigation * Wound dressing * Tdap Patient with skin avulsion, no indication for suture repair. Hemostasis achieved with pressure in ED. Wound thoroughly irrigated, cleaned, and dressed with bacitracin by cat scan technologistyudelka Geronimo. Wound care instructions discussed. Encounter translated by nurse Goodson. Diagnostic testing results and plan of care discussed with patient. Strict instructions given regarding prescription use, importance of followup, and signs/symptoms to return to ER including fever, chills, signs of wound infection, or any other new/worsening symptoms. Pt verbalized understanding of discussion. Patient is A&Ox3, ambulating with steady gait, with vital signs stable for discharge. - Medication Orders Current Medication Orders: Discontinued Medications Bacitracin (Bacitracin) 1 ea TOP ONCE ONE Stop: 11/24/18 17:55 Last Admin: 11/24/18 18:11 Dose: 1 ea Tetanus/Reduced Diphtheria/Acell Pertussis (Boostrix Vaccine Inj) 0.5 ml IM .ONCE ONE Stop: 11/24/18 17:55 Last Admin: 11/24/18 18:10 Dose: 0.5 ml Immunization Registry Document 11/24/18 18:10 SRE (Rec: 11/24/18 18:10 [id number]-Date provided 11/24/18 MAR Immunization Data Document 11/24/18 18:10 SRE (Rec: 11/24/18 18:10 [id number] Immunization Data Vaccine Information Sheet Given Yes Disposition/Present on Arrival - Present on Arrival Any Indicators Present on Arrival: No History of DVT/PE: No History of Uncontrolled Diabetes: No Urinary Catheter: No History of Decub. Ulcer: No History Surgical Site Infection Following: None - Disposition Have Diagnosis and Disposition been Completed?: Yes Diagnosis: Skin avulsion Disposition: HOME/ ROUTINE Disposition Time: 18:30 Patient Plan: Discharge Condition: IMPROVED Discharge Instructions (ExitCare): Wound Care (DC) Print Language: FAROESE Additional Instructions: Mantenga la herida limpia, seca y cubierta regla 2 [place]. Despus de 2 [place], retire el apsito y lave diariamente con agua y jabn, suavemente Seguimiento con mdico primario en 2 rutherford. Regrese a la sabine de emergencias con cualquier sntoma nuevo o que empeore. Referrals: Libra Bryan MD [Primary Care Provider] - Follow up with primary Forms: [employer] (Ivorian), WORK NOTE
== END 2018-11-24 18:39 | disposition home or self-care (01) ==
LOC: ED 17:20
DX: S61.317A Laceration without foreign body of left little finger with damage to nail, initial encounter (principal); W26.0XXA Contact with knife, initial encounter; Y92.89 Other specified places as the place of occurrence of the external cause; Y99.0 Civilian activity done for income or pay; Z23 Encounter for immunization

== ENCOUNTER 2019-01-03 12:02 | Emergency (ER) | payer MEDICAID ==
[2019-01-03 12:10] VITALS: BMI 29.8
[2019-01-03 12:18] VITALS: BP 131/85; PULSE 86; RESP 18; TEMP 98.5; O2SAT 99
== END 2019-01-03 12:19 | disposition left against medical advice (07) ==
LOC: ED 12:02
DX: Z02.89 Encounter for other administrative examinations (principal); R73.9 Hyperglycemia, unspecified
CPT/HCPCS: 82948; LWBS0